=== PATIENT | male | born 1980 | race Caucasian/White ===

== ENCOUNTER 2022-03-23 16:59 | Emergency (ER) | payer OTHER ==
[~2022-03-23] VITALS: Ht 167.6 cm; Wt 77.1 kg
[2022-03-23] MEDS ORDERED: DICLOFENAC SODI75 MG PO (21:44)
== END 2022-03-23 21:49 | disposition home or self-care (01) ==
LOC: ER 16:59
DX: M54.50 Low back pain, unspecified (principal); R10.30 Lower abdominal pain, unspecified; R31.9 Hematuria, unspecified